=== PATIENT | male | born 1970 | race Caucasian/White ===

== ENCOUNTER 2019-10-12 14:13 | Emergency (ER) | payer BC ==
[2019-10-12] MEDS ORDERED: EPINEPHrine 1 MG/ML AMP IM STA (14:24)
[2019-10-12] MEDS ORDERED: DEXAMETHASONE 10 MG/ML VIAL PO STA (14:24)
[2019-10-12] MEDS ORDERED: CHERRY SYRUP 10 ML UDC PO ONE (14:24)
[2019-10-12] MEDS ORDERED: diphenhydrAMINE 25 MG CAPSULE PO STA (14:24)
--- NOTE | 2019-10-12 14:25 | ED Physician Documentation ---
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 He complains of tongue swelling. No other complaints. Review of Systems Constitutional: reports: Reviewed and negative Eyes: reports: Reviewed and negative Ears: reports: Reviewed and negative Nose: reports: Reviewed and negative PD PAST MEDICAL HISTORY - Present Medications Home Medications: Ambulatory Orders Medication Instructions Recorded Confirmed predniSONE [Deltasone] 60 mg PO DAILY 3 Days #9 tablet 10/12/19 - Allergies Allergies/Adverse Reactions: Allergies Allergy/AdvReac Type Severity Reaction Status Date / Time No Known Drug Allergies Allergy Verified 10/12/19 14:31 PD ED PE NORMAL - Vitals Vital signs reviewed: Yes - General General: Alert and oriented X 3, No acute distress - HEENT HEENT: Other (Modest angioedema of especially the left anterior tongue with normal voice and posterior oropharynx.) - Neck Neck: Supple, no meningeal sign, No bony TTP - Extremities Extremities: No edema, No calf tenderness / cord - Neuro Neuro: Alert and oriented X 3, Normal speech Results - Vitals Vitals: Vital Signs - 24 hr 10/12/19 10/12/19 14:20 14:46 Temperature 37.0 C 37 C Heart Rate 75 75 Respiratory 21 21 Rate Blood Pressure 152/111 H 152/111 H O2 Saturation 93 93 Oxygen O2 Source Room air PD MEDICAL DECISION MAKING - ED course ED course: No evidence of anaphylaxis, that said the site of the sting is concerning even with a localized reaction and thus he was treated with epinephrine, steroids, Benadryl, and ED observation. He was observed for an hour, the swelling improved and at discharge was all but imperceptible to both him and myself. Departure - Departure Disposition: 01 Home, Self Care Clinical Impression: Hymenoptera sting Qualifiers: Encounter type: initial encounter Injury intent: accidental or unintentional Qualified Code(s): T63.481A - Toxic effect of venom of other arthropod, accidental (unintentional), initial encounter Condition: Good Record reviewed to determine appropriate education?: Yes Instructions: ED Bite Sting Insect Local Allergic React Prescriptions: predniSONE [Deltasone] 60 mg PO DAILY 3 Days #9 tablet Comments: Return or go to a local ER for worsening which I do not expect at this point.
[2019-10-12 16:24] VITALS: BP 136/81
== END 2019-10-12 15:33 | disposition home or self-care (01) ==
LOC: ED 14:13
DX: T63.481A Toxic effect of venom of other arthropod, accidental (unintentional), initial encounter (principal)
CPT/HCPCS: 96372; 99283; A9270